=== PATIENT | female | born 1940 | race Caucasian/White ===

== ENCOUNTER → 2019-10-03 09:59 | Outpatient (CLI) | payer MEDICARE, OTHER, SELFPAY ==
--- NOTE | 2019-10-03 10:01 | DI.RAD.S_ITS ---
PROCEDURE: XR CERVICAL SPINE 4V OR 5V INDICATIONS: low back pain TECHNIQUE: 5 views of the cervical spine acquired. COMPARISON: None. FINDINGS: Bones: No fractures or dislocations to the T1 level. Multilevel degenerative endplate sclerosis and spurring. Diffuse facet arthropathy. Severe narrowing of the C4-C5 disc space. Mild narrowing of the C7-T1 disc space, and the C5-C6 disc space. Straightening of the normal lordotic curvature. On the left, no bony foraminal stenosis. On the right, moderate bony foraminal narrowing at C4-C5, C5-C6, and C6-C7. Soft tissues: No prevertebral soft tissue swelling. IMPRESSION: Cervical spondylosis, most pronounced at C4-C5. Diffuse facet arthropathy Multilevel right-sided bony foraminal stenoses as above Dictated by: Mike Aj M.D. on 10/03/2019 at 13:12 Approved by: Mike Aj M.D. on 10/03/2019 at 13:15
--- NOTE | 2019-10-03 10:01 | DI.RAD.S_ITS ---
PROCEDURE: XR LUMBAR SPINE MIN 4V INDICATIONS: low back pain TECHNIQUE: 5 views of the lumbar spine were acquired. COMPARISON: [facility], RG, XR L-SPINE 4-6V, 08/24/2018, 16:02. FINDINGS: Bones: No fracture or focal osseous destruction. Trace anterolisthesis of L3 on L4. Severe narrowing of the L3-L4 disc space. Mild narrowing of the L1-L2 and L2-L3 disc spaces. Multilevel degenerative endplate sclerosis and spurring. Diffuse facet arthropathy. Soft tissues: Overlying bowel gas pattern is normal. No suspicious soft tissue calcifications. Scattered vascular calcifications seen in the aorta. Oblique images: No pars defects. IMPRESSION: Multilevel lumbar spondylosis and facet arthropathy most pronounced at L3-L4, with slight interval progression since 08/24/18 Trace anterolisthesis of L3 on L4 as before. Dictated by: Mike Aj M.D. on 10/03/2019 at 11:52 Approved by: Mike Aj M.D. on 10/03/2019 at 11:55
== END ==
PROVIDERS: PCP Internal Medicine; Referring Provider Physical Medicine & Rehabilitation; Visit Provider Physical Medicine & Rehabilitation
DX: M47.816 Spondylosis without myelopathy or radiculopathy, lumbar region (principal); M47.812 Spondylosis without myelopathy or radiculopathy, cervical region; M48.02 Spinal stenosis, cervical region; M50.221 Other cervical disc displacement at C4-C5 level; M51.26 Other intervertebral disc displacement, lumbar region; M19.049 Primary osteoarthritis, unspecified hand; M65.30 Trigger finger, unspecified finger
CPT/HCPCS: 72050; 72110; 99215

== ENCOUNTER → 2019-10-14 18:41 | Outpatient (CLI) | payer MEDICARE, OTHER, SELFPAY ==
--- NOTE | 2019-10-14 18:45 | DI.MRI.S_ITS ---
PROCEDURE: MR LUMBAR SPINE WO CON INDICATIONS: progressive LBP TECHNIQUE: Noncontrast sagittal T1 spin echo and T2 fast echo, sagittal STIR, axial T1 and T2 fast spin echo through the lumbar spine. In cases with scoliosis, additional coronal T2 fast spin echo may be performed. COMPARISON: Lumbar spine plain films dated 10/03/19. FINDINGS: Image quality: Excellent. Alignment and Curvature: Trace degenerative anterolisthesis of L3 on L4. There is otherwise normal bony alignment. Bone Marrow: Marrow is of normal overall signal. No acute vertebral body compression fractures. Spinal Cord: Conus medullaris terminates at the L1-L2 level. Visualized cord demonstrates normal signal and size. Paraspinous Soft Tissues: No paravertebral masses. T12-L1: No canal stenosis or foraminal stenosis. L1-L2: Minimal disc bulge. Facet and ligament hypertrophy. No canal stenosis or foraminal stenosis. L2-L3: Mild disc bulge. The set and ligament hypertrophy. Mild canal stenosis. Mild to moderate left foraminal stenosis. L3-L4: Severe disc height loss. Large broad-based central posterior disc protrusion, minimal anterolisthesis of L3 on L4, and prominent facet and ligament hypertrophy result in severe canal stenosis. There is mild right foraminal narrowing and moderate to severe left foraminal narrowing. There is impingement on the left L3 nerve root in the left foramen. L4-L5: Moderate canal stenosis secondary to disc bulge and facet and ligament hypertrophy. Mild bilateral foraminal narrowing. L5-S1: Disc bulge. Facet and ligament hypertrophy. Mild canal stenosis. There is a small right foraminal facet joint cyst contributing to moderate right foraminal narrowing and flattening deformity on the exiting right L5 nerve root. There is mild left foraminal narrowing. IMPRESSION: 1. At L3-L4, a large broad-based central posterior disc protrusion contributes to severe multifactorial canal stenosis. 2. Canal stenosis is mild at L2-L3, moderate at L4-L5, and mild at L5-S1. 3. Multilevel facet arthropathy. 4. Multilevel foraminal narrowing as described above. Findings include moderate to severe left foraminal narrowing at L3-L4, as well as moderate right foraminal narrowing at L5-S1. At L5-S1, a facet joint cyst contributes to right foraminal narrowing. Dictated by: Jeffrey Caba M.D. on 10/16/2019 at 12:47 Approved by: Jeffrey Caba M.D. on 10/16/2019 at 12:54
== END ==
PROVIDERS: PCP Internal Medicine; Referring Provider Physical Medicine & Rehabilitation; Visit Provider Physical Medicine & Rehabilitation
DX: M47.816 Spondylosis without myelopathy or radiculopathy, lumbar region (principal); M51.26 Other intervertebral disc displacement, lumbar region; M48.061 Spinal stenosis, lumbar region without neurogenic claudication; M48.07 Spinal stenosis, lumbosacral region
CPT/HCPCS: 72148

== ENCOUNTER → 2019-12-03 10:43 | Outpatient (CLI) | payer MEDICARE, OTHER, SELFPAY ==
[2019-12-04 21:06] LABS: COVID19 Sendout Not Detected (Not Detect)
== END ==
PROVIDERS: PCP Internal Medicine; Visit Provider Physician Assistant
DX: Z11.59 Encounter for screening for other viral diseases (principal)
CPT/HCPCS: 87635

== ENCOUNTER 2019-12-06 12:18 | Outpatient (CLI) | payer MEDICARE, OTHER, SELFPAY ==
[2019-12-06] VITALS (10 sets, daily range): BP systolic 116–187; BP diastolic 59–81; PULSE 63–75; RESP 12–22; TEMP 36.8; O2SAT 96–100
--- NOTE | 2019-12-06 12:22 | DI.RAD.S_ITS ---
PROCEDURE: PAIN L/S FACET INJ/BLK 1ST [facility]ERNARD COMPARISON: None. INDICATIONS: SPONDYLOSIS FINDINGS: Fluoroscopic spot filming was performed to verify placement of spinal needles at the L3-L4 and L4-L5 level(s), as labeled on the films. Appropriate location(s) of the needle tip(s) was confirmed by injection of iodinated contrast. Dictated by: Mike Aj M.D. on 12/06/2019 at 14:24 Approved by: Mike Aj M.D. on 12/06/2019 at 14:25
[2019-12-06] MEDS: BETAMETHASONE 30 MG/5 ML MDV 12 MG INJ (12:31)
[2019-12-06] MEDS: LIDOCAINE 1% 20 ML 10 ML INJ (12:31)
[2019-12-06] MEDS: BUPIVACAINE 0.5% (PF) VIAL 2 ML INJ (12:31)
[2019-12-06] MEDS: IOPAMIDOL 15 ML VIAL 3 ML INJ (12:31)
[2019-12-06] MEDS: MIDAZOLAM 5 MG/5 ML VIAL IV (13:27)
[2019-12-06] MEDS: fentaNYL 100 MCG/2 ML INJ 50 MCG IV (13:27)
--- NOTE | 2019-12-06 13:42 | P.PCN_ITS ---
Date/Time/Diagnoses Date of procedure: 12/06/19 Time of procedure: 13:42 Pre-procedure diagnosis: 1. FACET ARTHROPATHY 2. AXIAL LBP 3. MULTILEVEL DDD Post-procedure diagnosis: same Procedure Notes Procedure: 1. FLUORSCOPICALLY GUIDED CONTRAST CONTROLLED FACET JOINT INJECTIONS BILATERAL L3/4, L4/5 Indications: Jelly is referred by Dr. Caceres for treatment of Axial LBP Physician: Rashi Harp Total Fluoroscopy time (seconds): 7 Total sedation minutes: 13 Complications: none Procedure in detail & Post-procedure care: FINDINGS Multilevel Facet Arthropathy with Clinically significant axial LBP DESCRIPTION OF PROCEDURE Fluoroscopically guided, contrast-controlled bilateral L3/4, L4/5 facet joint injections. Following review of allergy and review of potential side effects and complications, including, but not necessarily limited to, infection, allergic reaction, local tissue breakdown, stroke, temporary or permanent nerve injury, paralysis, and possible , the patient indicated that the patient understood and agreed to proceed. An informed consent document was signed by the patient, witnessed by a nurse, and placed in the patient's chart. Additionally, other treatment options including medications, modalities, and physical therapy were reviewed with the patient. After review of previous anaesthesic history and IV conscious sedation the patient was deemed safe to proceed with today's procedure with IV conscious sedation as ASA class II designation. Safety time-out was performed to confirm patient ID, procedure to be performed and site of procedure. IV sedation was accomplished with a combination of 2mg of Versed and 50mcg of Fentanyl was administered by the RN after DO order, titrated to patient comfort during the course of the procedure while the patient remained responsive to all verbal commands. In the prone position, following sterile prep and drape of the lumbar region, the posterior aspect of the L3/4, L4/5 facet joints were identified fluoroscopically. The skin was anesthetized via a 25-gauge 1.5-inch needle with 1% lidocaine solution into the corresponding facet joints. At this point, a 22- gauge 3.5-inch spinal needle was atraumatically introduced and advanced under fluoroscopic guidance into the corresponding facet joints. Following negative aspiration, injections of approximately 0.2-cc of Isovue 200 confirmed interart icular placement without vascular uptake. The identical procedure was then performed at the L3/4, L4/5 facet joints on the left. Radiological data, including multiple fluoroscopic views of the lumbosacral spine, reveal a spinal needle at the L3/4, L4/5 facet joints bilaterally. Subsequent views show flow of contrast material both superiorly and inferiorly within the joint space without vascular or intrathecal uptake. At this point, a total of 0.5cc including a mixture of 0.25cc Marcaine and 0.25cc betamethasone was injected without complication into each of the corresponding facet joints. The patient tolerated the procedure well without signs or symptoms of complications prior to transfer to the recovery area continued monitoring without incident. The patient was then transferred to the recovery area where they were observed for an appropriate period of time after the injection. The patient reported a VAS score of 6 prior to the procedure and a post-procedure VAS of 0. POST OP INSTRUCTIONS The patient was provided a Pain Log to continue to record their response to the target-specific procedure prior to follow-up visit with their referring p hysician. Additionally, specific post-injection care instructions and a contact number to our office were provided if concerns arise regarding possible complications associated with the procedure are suspected.
--- NOTE | 2019-12-06 14:13 | PC.NURSE ---
Patient returned at 1352 via wheelchair, drowsy. 2 person assist to the chair. Resumed monitoring from JULIA Rocha.
== END 2019-12-06 14:39 | disposition home or self-care (01) ==
LOC: RAD 12:21
PROVIDERS: PCP Internal Medicine; Referring Provider Internal Medicine; Visit Provider Physical Medicine & Rehabilitation
DX: M47.816 Spondylosis without myelopathy or radiculopathy, lumbar region (principal); M54.5 Low back pain; M51.36 Other intervertebral disc degeneration, lumbar region
CPT/HCPCS: 64493; 64494; 99152; J0702; J2250; J3010